=== PATIENT | male | born 1950 | race Caucasian/White ===

== ENCOUNTER 2024-06-14 19:35 | Emergency (ER) | payer MEDICARE, SELFPAY ==
[2024-06-14 19:46] VITALS: BP 153/65; PULSE 66; RESP 22; TEMP 36.6; O2SAT 100; BMI 26.6
--- NOTE | 2024-06-14 20:02 | ED_ITS ---
HPI - General Adult General Chief complaint: Trauma Stated complaint: Fall of log, elbow, knee, hands, blood thinners Time Seen by Provider: 06/14/24 20:00 Source: patient Mode of arrival: Ambulatory History of Present Illness HPI narrative: Patient is a 73-year-old male. Is on Eliquis. Is here for evaluation of [place] that [place] He was standing on a log and fell and landed on his left side onto some rocks. He did not hit his head. No loss of consciousness. No neck pain. He reports discomfort in the left side of his chest wall and discomfort with breathing. He also reports left shoulder pain. Sustained an abrasion to his right knee left elbow and left hand. Related Data Home Medications Medication Instructions Recorded Confirmed apixaban 5 mg tablet (Eliquis) 5 mg PO BID 06/14/24 06/14/24 metoprolol succinate 50 mg 50 mg PO BID 06/14/24 06/14/24 tablet,extended release 24 hr Previous Rx's Medication Instructions Recorded hydrocodone 5 mg-acetaminophen 325 1 tab PO Q4-6H PRN pain #14 tabs 06/14/24 mg tablet Allergies Allergy/AdvReac Type Severity Reaction Status Date / Time No Known Drug Allergies Allergy Verified 06/14/24 19:45 Review of Systems Review of Systems Narrative: See HPI Patient History Social History Smoking Status: Former smoker Smoking Status: Former smoker tobacco type: cigarettes alcohol intake frequency: holidays/special occasions only Substance Use Type: does not use Exam Initial Vital Signs Initial Vital Signs: Vital Signs Temperature 97.8 F 06/14/24 19:46 Pulse Rate 66 06/14/24 19:46 Respiratory Rate 22 06/14/24 19:46 Blood Pressure 153/65 H 06/14/24 19:46 Pulse Oximetry 100 06/14/24 19:46 Oxygen Delivery Method Room Air 06/14/24 19:46 Const General: cooperative and No ill appearing HENMT Head: normal to inspection and normocephalic Face and sinus: normal facial exam Chest Chest: No crepitus and No tenderness Resp Effort & Inspection: normal respiratory effort Auscultation: clear to auscultation bilaterally Cardio Rate: regular rate Rhythm: regular rhythm GI Inspection: normal to inspection and non-distended Palpation: soft, No firm, No guarding and No tender Back/Spine/Pelvis Cervical Spine: No cervical spinal tenderness Thoracic/Lumbar Spine: No thoracic spinal tenderness and No lumbar spinal tenderness Skin Other: Patient has a superficial skin abrasion/skin tear on the hypothenar eminence of the left hand. No active bleeding. Patient has multiple abrasions over the left elbow. No active bleeding. Superficial abrasions of the anterior right knee. No active bleeding. Patient has a contusion on his left flank over his lower ribs. Neuro General: patient alert, patient awake and patient oriented x3 Extrem Other: Patient does have full range motion of the left shoulder but discomfort with movement. Has full range of motion of the left elbow left wrist but has an abrasion over the left elbow. Pelvis is stable. Ambulatory. Right upper extremities unremarkable. Scores GCS Katelyn coma scale eye opening: Spontaneous [place] coma scale verbal response: Orientated Katelyn coma scale motor response: Obey commands Katelyn coma scale total score: 15 Nexus Score for C-Spine Focal Neurologic deficit present: No Midline spinal tenderness present: No Altered level of conciousness present: No Intoxication present: No Distracting Injury Present: No Nexus Criteria for C-spine: 0 Course Orders Ordered: ED Orders 06/14/24 20:05 CT chest wo con Stat XR shoulder LT min 2V Stat 06/14/24 20:13 Complete Blood Count AUTO DIFF Stat Comprehensive Metabolic Panel Stat Lipase Stat PTT Partial Thromboplastin Diego Stat Prothrombin Time INR Stat Discontinued Medications Hydrocodone Bitart/Acetaminophen (Hydrocodone/Acet 5/325 Tablet) 1 tab PO NOW ONE Stop: 06/14/24 21:07 Last Admin: 06/14/24 21:14 Dose: 1 tab Documented By: DASH Hydrocodone Bitart/Acetaminophen (Hydrocodone/Acet 5/325 Prepack) 1 bottle MISC DIRECTED ONE Stop: 06/14/24 22:00 Last Admin: 06/14/24 22:20 Dose: 1 bottle Documented By: DASH Vital Signs Vital signs: Vital Signs - 8 hr 06/14/24 19:46 06/14/24 20:10 06/14/24 23:09 Temperature 97.8 F Pulse Rate 66 64 Pulse Rate [2014] 71 Respiratory Rate 22 16 Respiratory Rate [2014] 16 Blood Pressure 153/65 H 139/63 Blood Pressure [2015] 119/52 L Pulse Oximetry 100 97 Pulse Oximetry [2015] 99 Oxygen Delivery Method Room Air Room Air Oxygen Delivery Method [2015] Room Air Medical Decision Making Lab Data Lab results reviewed: Yes I reviewed the patient's lab results. 06/14/24 20:13 06/14/24 20:13 Labs: Lab Results 06/14/24 Range/Units 20:13 WBC 5.7 (4.5-11.0) X10^3/uL RBC 3.68 L (4.5-5.9) X10^6/uL Hgb 11.8 L (13.5-17.5) g/dL Hct 35.1 L (41-53) % MCV 95.4 (80-100) fL MCH 32.2 (26-34) PG MCHC 33.7 (30-36) % RDW 14.3 (11.6-14.8) % Plt Count 101 L (150-400) X10^3/uL Neut % (Auto) 63.4 (50-75) % Lymph % (Auto) 27.6 (25-40) % Jefferson % (Auto) 6.8 (3-14) % Eos % (Auto) 1.3 L (2-4) % Baso % (Auto) 0.9 (0-2) % Neut # (Auto) 3600 (1749-8945) /uL Lymph # (Auto) 1600 (9271-7640) /uL Jefferson # (Auto) 400 (0-900) /uL Eos # (Auto) 100 (0-450) /uL Baso # (Auto) 100 (0-100) /uL PT 12.1 (9.4-12.5) SECONDS INR 1.1 (0.9-1.3) APTT 34 (25.1-36.5) SECONDS Sodium 140 (137-145) mmol/L Potassium 4.4 (3.4-5.1) mmol/L Chloride 105 (98-107) mmol/L Carbon Dioxide 30 (22-32) mmol/L BUN 25 H (9-20) mg/dL Creatinine 0.96 (0.66-1.25) mg/dL Estimated GFR > 60 (>60) mL/min BUN/Creatinine Ratio 26.0 H (6-22) Glucose 94 (80-110) mg/dL Calcium 9.4 (8.4-10.2) mg/dL Total Bilirubin 0.6 (0.2-1.3) mg/dL AST 32 (17-59) IU/L ALT 20 (<50) IU/L Alkaline Phosphatase 71 (38-126) U/L Total Protein 8.1 (6.3-8.2) g/dL Albumin 4.3 (3.5-5.0) g/dL Globulin 3.8 (1.7-4.1) g/dL Albumin/Globulin Ratio 1.1 (1.0-2.8) Lipase 343 H (23-300) U/L Imaging Data CT scan - chest: Radiologist's Impression: PROCEDURE: CT CHEST WO CON INDICATIONS: L rib pain after fall with SOB TECHNIQUE: Noncontrast 5 mm thick sections acquired from the pulmonary apices to the posterior costophrenic angles. 1 mm lung window, 5 mm thick coronal and sagittal and 7 mm axial MIP reformats were then acquired. For radiation dose reduction, the following was used: automated exposure control, adjustment of mA and/or kV according to patient size. COMPARISON: None. FINDINGS: Image quality: Diagnostic. Lower Neck: No enlarged lymph nodes. Thyroid: No thyroid nodules which require sonographic follow up, per consensus guidelines. Axillae: No enlarged lymph nodes. Chest Wall: Unremarkable. Bones: Acute fractures of the posterior left 10th, 11th, and 12th ribs. No other fracture seen. No acute compression fractures of the thoracic spine. Lungs and Pleura: No pneumothorax or pleural effusions. No consolidation or suspicious nodules requiring follow-up. Mild upper lobe predominant pulmonary emphysema. Heart: Heart size is normal. No pericardial effusion. Coronary atherosclerotic vascular calcifications are noted. Thoracic Vessels: The aorta and pulmonary arteries demonstrate normal size. Mediastinum and Nat: No enlarged lymph nodes. Esophagus: No wall thickening. No hiatal hernia. Upper Abdomen: Cholelithiasis without CT evidence for acute cholecystitis. Punctate calcifications near the bilateral renal nat likely representing vascular calcifications. Other visualized upper abdomen solid organs and bowel loops appear normal. IMPRESSION: Acute, minimally displaced posterior left 10th, 11th, and 12th rib fractures. No evidence for pulmonary contusion or pneumothorax. Cholelithiasis without CT evidence for acute cholecystitis. Other chronic findings as above Extremity x-ray #1: Radiologist's Impression: PROCEDURE: XR SHOULDER LT MIN 2V INDICATIONS: L shoulder pain after fall TECHNIQUE: 2 views of the shoulder were acquired. COMPARISON: None. FINDINGS: Bones: No fractures or dislocations. No suspicious bony lesions. Visualized ribs appear intact. Soft tissues: No suspicious soft tissue calcifications. IMPRESSION: No acute bony abnormality. If there is persistent clinical concern for occult fracture given adequate mechanism of injury, consider repeat imaging in 10-14 days. Immobilization as clinically indicated. MDM Narrative Medical decision making narrative: The skin wounds are superficial. There was a Steri-Strips placed over the skin tear on the left palm and also over his left elbow. X-ray of his left shoulder is unremarkable. I held on any further x-rays as he did not seem to have any discomfort with movement of his other joints. CT scan of the chest just show left lower rib fractures corresponding to the bruising over his left flank. Underlying lung is unremarkable. He was on anticoagulation but he did not hit his head and there was no loss of consciousness. His cervical spine was cleared by nexus criteria. Will discharge patient home with an incentive spirometer. We discussed the findings with the CT scan. Discussed return precautions and follow-up instructions. He expressed understanding and agreement. Discharge Plan Departure Patient Disposition: Home Clinical Impression: Multiple rib fractures, Contusion of skin, Abrasion of skin Instructions: DI for Rib Fracture, DI for Abrasion Activity Restrictions/Additional Instructions: Use the pain medication as needed. Be sure that you were occasionally taking deep breaths. You can shower like normal and use topical antibiotic ointment over the skin abrasions. Return to the emergency department for new or worsening symptoms. Prescriptions: New hydrocodone-acetaminophen 5-325 mg tablet 1 tab PO Q4-6H PRN (Reason: pain) Qty: 14 0RF No Action Eliquis 5 mg Tablet 5 mg PO BID metoprolol succinate 50 mg Tablet Extended Release 24 Hr 50 mg PO BID Referrals: Miscellaneous,Doctor, [Primary Care Provider] - Stand Alone Forms: Patient Portal/API
--- NOTE | 2024-06-14 20:05 | DI.RAD.S_ITS ---
PROCEDURE: XR SHOULDER LT MIN 2V INDICATIONS: L shoulder pain after fall TECHNIQUE: 2 views of the shoulder were acquired. COMPARISON: None. FINDINGS: Bones: No fractures or dislocations. No suspicious bony lesions. Visualized ribs appear intact. Soft tissues: No suspicious soft tissue calcifications. IMPRESSION: No acute bony abnormality. If there is persistent clinical concern for occult fracture given adequate mechanism of injury, consider repeat imaging in 10-14 days. Immobilization as clinically indicated. Dictated by: Ulisses Jaramillo M.D. on 06/14/2024 at 21:39 Approved by: Ulisses Jaramillo M.D. on 06/14/2024 at 21:39
--- NOTE | 2024-06-14 20:05 | DI.CT.S_ITS ---
PROCEDURE: CT CHEST WO CON INDICATIONS: L rib pain after fall with SOB TECHNIQUE: Noncontrast 5 mm thick sections acquired from the pulmonary apices to the posterior costophrenic angles. 1 mm lung window, 5 mm thick coronal and sagittal and 7 mm axial MIP reformats were then acquired. For radiation dose reduction, the following was used: automated exposure control, adjustment of mA and/or kV according to patient size. COMPARISON: None. FINDINGS: Image quality: Diagnostic. Lower Neck: No enlarged lymph nodes. Thyroid: No thyroid nodules which require sonographic follow up, per consensus guidelines. Axillae: No enlarged lymph nodes. Chest Wall: Unremarkable. Bones: Acute fractures of the posterior left 10th, 11th, and 12th ribs. No other fracture seen. No acute compression fractures of the thoracic spine. Lungs and Pleura: No pneumothorax or pleural effusions. No consolidation or suspicious nodules requiring follow-up. Mild upper lobe predominant pulmonary emphysema. Heart: Heart size is normal. No pericardial effusion. Coronary atherosclerotic vascular calcifications are noted. Thoracic Vessels: The aorta and pulmonary arteries demonstrate normal size. Mediastinum and Nat: No enlarged lymph nodes. Esophagus: No wall thickening. No hiatal hernia. Upper Abdomen: Cholelithiasis without CT evidence for acute cholecystitis. Punctate calcifications near the bilateral renal nat likely representing vascular calcifications. Other visualized upper abdomen solid organs and bowel loops appear normal. IMPRESSION: Acute, minimally displaced posterior left 10th, 11th, and 12th rib fractures. No evidence for pulmonary contusion or pneumothorax. Cholelithiasis without CT evidence for acute cholecystitis. Other chronic findings as above Dictated by: Ulisses Jaramillo M.D. on 06/14/2024 at 21:39 Approved by: Ulisses Jaramillo M.D. on 06/14/2024 at 21:43
[2024-06-14 20:10] VITALS: BP 119/52; PULSE 71; RESP 16; O2SAT 99
--- NOTE | 2024-06-14 20:20 | PC.NURSE ---
Pt to CT and Xray, accompanied by this RN. Mobile monitor unable to be found. Pt left attached to module.
[2024-06-14 20:22] LABS: Add Manual Diff / Slide Review NO; Basophils Absolute Auto 100 /uL (0-100); Basophils Percent Auto 0.9 % (0-2); Eosinophils Absolute Auto 100 /uL (0-450); Eosinophils Percent Auto 1.3 % (2-4); Hematocrit 35.1 % (41-53); Hemoglobin 11.8 g/dL (13.5-17.5); Lymphocytes Absolute Auto 1600 /uL (1100-4500); Lymphocytes Percent Auto 27.6 % (25-40); Mean Corpuscular HGB Conc 33.7 % (30-36); Mean Corpuscular Hemoglobin 32.2 PG (26-34); Mean Corpuscular Volume 95.4 fL (80-100); Monocytes Absolute Auto 400 /uL (0-900); Monocytes Percent Auto 6.8 % (3-14); Neutrophils Absolute Auto 3600 /uL (1500-7000); Neutrophils Percent Auto 63.4 % (50-75); Platelet Count 101 X10^3/uL (150-400); Red Blood Cell Count 3.68 X10^6/uL (4.5-5.9); Red Cell Distribution Width 14.3 % (11.6-14.8); White Blood Cell Count 5.7 X10^3/uL (4.5-11.0)
[2024-06-14 20:26] LABS: INR 1.1 (0.9-1.3); Prothrombin Time 12.1 SECONDS (9.4-12.5)
[2024-06-14 20:29] LABS: PTT Partial Thromboplastin Tim 34 SECONDS (25.1-36.5)
[2024-06-14 20:33] LABS: Alanine Aminotransferase 20 IU/L (<50); Albumin 4.3 g/dL (3.5-5.0); Albumin Globulin Ratio 1.1 (1.0-2.8); Alkaline Phosphatase 71 U/L (38-126); Aspartate Aminotransferase 32 IU/L (17-59); Bilirubin Total 0.6 mg/dL (0.2-1.3); Blood Urea Nitrogen 25 mg/dL (9-20); Calcium 9.4 mg/dL (8.4-10.2); Carbon Dioxide 30 mmol/L (22-32); Chloride 105 mmol/L (98-107); Estimated Glomerular Filt Rate > 60 mL/min (>60); Globulin 3.8 g/dL (1.7-4.1); Glucose 94 mg/dL (80-110); HEMOLYSIS < 15 (0-50); Lipase 343 U/L (23-300); Potassium 4.4 mmol/L (3.4-5.1); Sodium 140 mmol/L (137-145); Total Protein 8.1 g/dL (6.3-8.2)
[2024-06-14] MEDS: HYDROCODONE/ACET 5/325 TABLET 1 TAB PO (21:14)
--- NOTE | 2024-06-14 21:15 | PC.NURSE ---
Pt wounds irrigated w NS and hibiclens soaked 4x4s. Pt tolerated appropriately. 1000 mLs of saline used for irrifation of all wounds. Sand and rock particles removed from L palm during clensing. BETINA August called to inspect wounds for approval. Small particles that were left deemed acceptable and will work themselves out per EMD. Steri-strips applied w 2x2 gauze pads and koban wraps. L palm received steri-strips, 2x2 and gauze wrap.
[2024-06-14] MEDS: HYDROCODONE/ACET 5/325 PREPACK 1 BOTTLE MISC (22:20)
[2024-06-14 23:09] VITALS: BP 139/63; PULSE 64; RESP 16; O2SAT 97
== END 2024-06-14 22:30 | disposition home or self-care (01) ==
PROVIDERS: Emergency Provider Emergency Medicine
DX: S22.42XA Multiple fractures of ribs, left side, initial encounter for closed fracture (principal); S30.1XXA Contusion of abdominal wall, initial encounter; S80.211A Abrasion, right knee, initial encounter; S50.312A Abrasion of left elbow, initial encounter; S60.512A Abrasion of left hand, initial encounter; R06.02 Shortness of breath; Z79.01 Long term (current) use of anticoagulants; W17.89XA Other fall from one level to another, initial encounter
CPT/HCPCS: 36415; 71250; 73030; 80053; 83690; 85025; 85610; 85730; 99284